=== PATIENT | female | born 2005 | race Caucasian/White ===

== ENCOUNTER → 2024-04-06 | Emergency (ER) | payer OTHER ==
[~2024-04-06] VITALS: Ht 162.6 cm; Wt 58.1 kg
[2024-04-06 13:33] VITALS: BP 112/70; TEMP 98.1; O2SAT 99
== END | disposition home or self-care (01) ==
LOC: ER 14:33
DX: L53.8 Other specified erythematous conditions (principal); Z98.82 Breast implant status